=== PATIENT | female | born 1935 | race Caucasian/White ===

== ENCOUNTER 2020-10-03 10:47 | Emergency (ER) | payer OTHER, BC ==
[~2020-10-03] VITALS: Ht 154.9 cm; Wt 72.6 kg
[2020-10-03 10:50] VITALS: BP 111/63
--- NOTE | 2020-10-03 10:50 | NUR ---
PT BIBA TO BED 4. PT ABLE TO AMBULATE TO BED WITH ASSISTANCE FROM MED[facility]. PT PLACED ON SUPERVISOR CONCRETE STONE FABRICATING
--- NOTE | 2020-10-03 10:55 | NUR ---
85 Y/O FEMALE BIBA FROM [facility] C/C SOB X1 MO. PT STATED IT HAS WORSENED OVER THE LAST FEW DAYS, DENIES 02 AT HOME. PER MEDIC, PT ADMITTED TO [facility] FOR SOB 2 WEEKS AGO, D/C 09/26/20. PT STATED THAT SHE WAKES UP IN THE MIDDLE OF THE NIGHT SOB AND HAS TO SIT IN A CHAIR TO CATCH BREATH. SHE ALSO STATES SOB DURING EXERTION. 20G AC IV INSERTED BY MEDIC. PT SPO2 99% RA WITH LUNG SOUNDS CLEAR BILATERAL THROUGHOUT. +1 PITTING EDEMA NOTED ON BILATERAL LOWER EXTREMETIES. PT STATES HX OF FALLS WITH LAST ONE 07/15 WHICH CAUSES BILATERAL KNEE AND LOWER BACK PAIN. PT RATES PAIN /10 THAT IS NONRADIATING AND DULL. PT DENIES FEVER/N/V. PT STATED SHE RECEIVED 2 DOSES OF PZIFER COVID VACCINE WITH LAST SHOT GIVEN 3 WEEKS AGO. PT IS A/O X4 WITH EVEN AND UNLABORED RESPITATIONS. PT IS LAYING IN BED WITH BED IN LOWEST POSITION, BRAKES LOCKED, X2 SIDE RAILS UP. PT PLACED ON NURSE WOUND CARE WITH FALL PRECAUTIONS IN PLACE. PMH: CHF, COPD, HTN, AFIB ALLERGIES: SULFA
--- NOTE | 2020-10-03 11:17 | NUR ---
DR OVIEDO AT BEDSIDE EVALUATING PT
[2020-10-03] MEDS ORDERED: SPIR25TA PO (11:21)
[2020-10-03] MEDS ORDERED: FLUT1DSK IH (11:21)
[2020-10-03] MEDS ORDERED: BUME1TAB92 PO (11:21)
[2020-10-03] MEDS ORDERED: APIX5TAB PO (11:21)
[2020-10-03] MEDS ORDERED: POTA10TE30 PO (11:21)
[2020-10-03] MEDS ORDERED: ASPI-1822 PO (11:21)
[2020-10-03] MEDS ORDERED: ALBU0.0912 INH (11:21)
[2020-10-03] MEDS ORDERED: LIP80 PO (11:21)
--- NOTE | 2020-10-03 11:23 | NUR ---
SPOKE WITH PT DAUGHTER, RADHA TO PROVIDE AN UPDATE ON PT STATUS. CALL FOR FURTHER UPDATES: [phone]
[2020-10-03] MEDS ORDERED: DILTIAZEM 25 MG/5 ML VIAL IVP ONE (11:25)
--- NOTE | 2020-10-03 11:33 | NUR ---
EMT AT BEDSIDE FOR EKG
--- NOTE | 2020-10-03 11:42 | NUR ---
RAD AT BEDSIDE
--- NOTE | 2020-10-03 12:40 | NUR ---
PT HR AND BP REASSESSED AFTER DILTIAZEM ADMIN. BP: 99/[address] OVIEDO MADE AWARE
--- NOTE | 2020-10-03 12:43 | NUR ---
Pt resting, visible equal rise and fall of chest, VSS, will continue to monitor.
--- NOTE | 2020-10-03 13:32 | NUR ---
PT REPOSITIONED IN BED. EVEN AND UNLABORED RESPIRATIONS OBSERVED. BED INLOWEST POSITION BRAKES LOCKED, X2 SIDERAILS UP. WILL CONTINUE TO MONITOR. ETA FOR TRANSFER BACK TO [facility]: 1500
--- NOTE | 2020-10-03 14:13 | NUR ---
PT AMBULATED TO RESTOOM WITH ASSISTANCE
--- NOTE | 2020-10-03 14:21 | NUR ---
Patient discharged with v/s stable. Written and verbal after care instructions given and explained. Patient verbalized understanding. [facility]ulance Transport with to [facility]. All questions addressed prior to discharge. Advised to follow up with PMD.
[2020-10-03 15:04] VITALS: BP 109/68
== END 2020-10-03 14:21 | disposition home or self-care (01) ==
LOC: MED 10:47
DX: I48.91 Unspecified atrial fibrillation (principal); I50.9 Heart failure, unspecified; E78.00 Pure hypercholesterolemia, unspecified; J44.9 Chronic obstructive pulmonary disease, unspecified; Z88.2 Allergy status to sulfonamides; Z79.899 Other long term (current) drug therapy
CPT/HCPCS: 71045; 93005; 96374; 99285; J3490